=== PATIENT | male | born 1950 | race Caucasian/White ===

== ENCOUNTER 2016-06-28 12:22 | Day surgery (SDC) | payer BC ==
[2016-06-28] MEDS ORDERED: XYLOCAINE 2 % (PLAIN) ONE (13:30)
[2016-06-28] MEDS: KENALOG INJ 40 MG ONE ×2 (13:43→13:46)
[2016-06-28] MEDS: MARCAINE 0.25% WITH EPI IJ ONE ×2 (13:43→13:46)
[2016-06-28 13:58] VITALS: BP 171/98
== END 2016-06-28 14:00 | disposition home or self-care (01) | DRG 552 ==
LOC: SURG1 12:22
PROVIDERS: ATTEND Specialist
PROC: 3E0R33Z Introduction of Anti-inflammatory into Spinal Canal, Percutaneous Approach (ICD-10-PCS; principal; 2016-06-28 13:00)
PROC: 3E0R3BZ Introduction of Anesthetic Agent into Spinal Canal, Percutaneous Approach (ICD-10-PCS; principal; 2016-06-28 13:00)
DX: M51.36 Other intervertebral disc degeneration, lumbar region (principal)
CPT/HCPCS: 62323; 76000; A4222; S0020; J2001; J3301